=== PATIENT | female | born 1990 | race Caucasian/White ===

== ENCOUNTER 2024-04-26 19:04 | Observation (INO) ==
[2024-04-26] MEDS: LIDOCAINE/EPINEPH/TETRACAINE 1 EA SYR EXT STA (19:48)
[2024-04-26 21:16] LABS: Albumin Globulin Ratio 1.3 (0.9-2); Albumin Level 4.2 gm/dl (3.4-5.0); BUN Creatinine Ratio 15.1 (10-20); Bilirubin,Total 0.7 mg/dl (0.2-1.0); Creatinine Clr Calc Pharmacy 152.2 ml/min; Globulin 3.3 gm/dl (2.5-4.0); Total Protein 7.5 gm/dl (6.0-8.3)
--- NOTE | 2024-04-26 21:17 | CT Scan Report ---
Exam(s): CT HEAD Without Contrast EXAM: CT Head Without Intravenous Contrast CLINICAL HISTORY: Reason for exam: head injury. TECHNIQUE: Axial computed tomography images of the head/brain without intravenous contrast. CTDI is 35.65 mGy and DLP is 624.41 mGy-cm. Automated exposure control was utilized for the study. A dose lowering technique was utilized adhering to the principles of ALARA. COMPARISON: No relevant prior studies available. FINDINGS: Brain: No hemorrhage, extra-axial fluid collection, mass effect, or edema. Ventricles: Unremarkable. Bones/joints: Unremarkable. No fracture. Soft tissues: Unremarkable. Sinuses: No acute sinusitis. Mastoid air cells: Unremarkable as visualized. IMPRESSION: 1. No acute intracranial abnormality. Electronically signed by: Dawood Fitzgerald MD 04/26/24 21:16 PM
--- NOTE | 2024-04-26 21:19 | CT Scan Report ---
Exam(s): CT C SPINE EXAM: CT Cervical Spine Without Intravenous Contrast CLINICAL HISTORY: Reason for exam: head injury, fall. TECHNIQUE: Axial computed tomography images of the cervical spine without intravenous contrast. CTDI is 26.96 mGy and DLP is 711.47 mGy-cm. Automated exposure control was utilized for the study. A dose lowering technique was utilized adhering to the principles of ALARA. COMPARISON: No relevant prior studies available. FINDINGS: Vertebrae: No acute fracture or malalignment. Soft tissues: Unremarkable. IMPRESSION: No acute fracture or malalignment. Electronically signed by: Dawood Fitzgerald MD 04/26/24 21:18 PM
[2024-04-26 21:26] LABS: Potassium 3.8 mmol/L (3.5-5.1)
[2024-04-26 21:39] LABS: Basophils # (auto) 0.05 K/uL (0.00-0.20); Basophils % (auto) 0.5 %; Eosinophils # (auto) 0.21 K/uL (0.00-0.50); Eosinophils % (auto) 2.1 %; Hematocrit (blood only) 46.1 % (37.0-47.0); Hemoglobin 15.3 g/dl (12.0-16.0); Immature Granulocytes # (auto) 0.04 K/uL (0.01-0.20); Immature Granulocytes % (auto) 0.4 %; Lymphocytes # (auto) 2.05 K/uL (1.20-3.40); Lymphocytes % (auto) 20.7 %; Mean Corpuscular Hemoglobin 27.3 pg (25.0-34.0); Mean Corpuscular Hgb Conc 33.2 g/dL (32.0-36.0); Mean Corpuscular Volume 82.2 fL (80.0-100.0); Mean Platelet Volume 11.5 fL (9.4-12.4); Monocytes # (auto) 0.46 K/uL (0.11-0.59); Monocytes % (auto) 4.6 %; Neutrophils # (auto) 7.11 K/uL (1.40-6.50); Neutrophils % (auto) 71.7 %; Platelet Count 231 K/uL (130-400); RDW Coefficient of Variation 12.9 % (11.5-14.5); RDW Standard Deviation 38.7 fL (36.4-46.3); Red Blood Count 5.61 M/uL (4.20-5.40); White Blood Count 9.92 K/ul (4.8-10.8)
--- NOTE | 2024-04-26 21:39 | History & Physical Report ---
Date of Service April 26, 2024 Assessment & Plan (1) Contaminated complex laceration of nose: (2) Laceration of lip with other complication: (3) Nasal bones, closed fracture: History of Present Illness Chief Complaint: nasal laceration Primary Care Provider: CARO Hamm Chief Complaint: Patient is a 33-year-old female who presents to the emergency department with complaints of facial pain and lacerations after a ground-level fall. Patient states that she had a chair slipped out from underneath her and she fell into a cabinet face first. Patient states that she hit her nose and upper lip off the cabinet and now has lacerations to the area. Patient still has active bleeding when she presented to the emergency department. Patient denies any loss of consciousness and denies being on any blood thinners. Fall in basement laceration (complex ) to right lateral area region, base of right nostril and upper lip. 4 cm Flap laceration with a small flap with poor blood flow due to thinness. Risk of devitalization of this this flap discussed with Nneka. Given the flap type laceration this is an emergency case if there is any hopes of maintain viability of the facia flap laceration. In addition to the facial laceration she has a depressed nasal bone fracture with separation at the naso-frontal suture. I will plan close reduction of the nasal bones with William splint Plan take to OR as she is NPO x 24 hours Plan complex repair of nasal/facial wound+closed nasal reduction/Motley splint I discussed the case with the ER PA we will plan OR tonight. I reviewed the procedure and consent signed I will follow in my office for outpatient care CT scan Exam(s): CT FACIAL Without Contrast EXAM: CT Maxillofacial Without Intravenous Contrast CLINICAL HISTORY: Reason for exam: head injury, facial injury. FINDINGS: Bones/joints: Comminuted displaced nasal bone fracture with soft tissue laceration involving the right nostril. Soft tissues: See above. Orbits: Intraorbital contents are unremarkable. Submandibular/parotid glands: Prominence of the parotid glands bilaterally which is a nonspecific finding. Sinuses: Unremarkable. No air-fluid levels. IMPRESSION: Comminuted displaced nasal bone fracture with soft tissue laceration involving the right nostril Physical Exam Constitutional WD/WN, vitals as above Eyes PERRL, conjunctivae normal, anicteric sclerae ENMT external ear and nose normal, oropharynx normal Ears: no TM abnormality and able to visualize TM Throat: uvula midline NOSE: there is a complex nasal/facial laceration right side, exposed cartilage, Neck normal visual inspection and trachea midline Respiratory normal respiratory effort, lungs clear to auscultation Cardiovascular RRR, no murmur, no edema Musculoskeletal Extremities: full ROM of extremities Gait: normal gait Skin no visible rashes or lesions Psychiatric A+Ox3, euthymic affect Lymphatic no preauricular lymphadenopathy and no cervical lymphadenopathy Allergies Allergy/AdvReac Type Severity Reaction Status Date / Time ibuprofen [From Motrin] Allergy Hives Verified 04/26/24 21:47 metformin [From Glumetza] AdvReac Severe Gastrointestinal Verified 04/26/24 22:27 Upset Home Medications Medication Instructions Recorded Confirmed Type acetaminophen 325 mg capsule 325 mg PO QID PRN 05/24/23 04/23/24 History (Tylenol) cranberry 500 mg capsule 500 mg PO BID 05/24/23 04/23/24 History ibuprofen 600 mg tablet 600 mg PO Q8H PRN 05/24/23 04/23/24 History multivitamin [Daily Multi-Vitamin] PO 05/24/23 04/23/24 History pantoprazole 20 mg tablet,delayed 20 mg PO DAILY 05/24/23 04/23/24 History release psyllium husk 0.4 gram capsule 0.4 g PO DAILY 05/24/23 04/23/24 History (Metamucil) simethicone 125 mg capsule (Gas-X 125 mg PO DAILY PRN 05/24/23 04/23/24 History Extra Strength) vitamin B complex (B 1 tab PO DAILY 05/24/23 04/23/24 History Complex-Vitamin B12 tablet) levothyroxine 112 mcg tablet 112 mcg PO DAILY #90 tabs 03/07/24 04/23/24 Rx azelastine 137 mcg (0.1 %) nasal 1 spray intranasal BID #30 mL 04/23/24 04/23/24 Rx spray Past Med/Surg History Problem List Nasal bones, closed fracture Contaminated complex laceration of nose Allergic rhinitis Sinus congestion Amenorrhea Medical History Obesity Encounter for pre-operative examination Laceration of lip with other complication Pre-diabetes Hypothyroidism Surgical History (Updated 04/27/24 @ 12:03 by Becca Tijerina RN) History of nasal surgery (04/26/24) Repair of Complex Nasal/Facial Lacerations, Closed Reduction of Nasal Bone Fracture(Not Applicable) - Stephen Mcclain, DMD History of thrombectomy Laparoscopic thrombectomy Hx of wisdom tooth extraction Family History Grandmother (Paternal) Breast cancer Father Diabetes Hypertension Mother Thyroid condition Denies family history of Ovarian cancer Prostate cancer Myocardial infarction Colorectal cancer Social History Smoking Status: Never smoker Second Hand Exposure: No; Do You Dip or Chew Tobacco: No; Tobacco Cessation Education Requested by Patient: No Hx Alcohol Use: Yes Alcohol type: wine and hard liquor Alcohol Intake Frequency: Monthly or Less Hx Substance Use: No Preferred Language: Citizen Of [place] Communication Ability: Effective Visual Impairment: No Limitations Hearing Ability: Normal Clinical Data Programmer Required: No Beliefs That Will Affect Care: None marital status: Single Current Living Situation: Alone current occupational status: employed 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 How many Children do You have: 0 Other Information That Helps Us Care for You: No Feels Safe at Home: Yes Safety Concerns: Feels Safe At This Time Childhood Exposure to Second-Hand Smoke: No Diet: regular caffeine: Yes Dental Care, Regularly: No Physical Activity Frequency: Does not Exercise Seatbelt Use: always Sunscreen Use: Yes Assistive Devices: CPAP and Glasses Results & Data Results & Data Vital Signs (Past 12 Hours) Vital Signs Temp Pulse Resp BP Pulse Ox O2 Del Method 04/26/24 21:18 89 18 158/80 H 96 Room Air 04/26/24 19:13 36.5 C 81 18 161/88 H 100 Room Air PG Care Time/CCT Total # of Minutes Spent Total Time Spent with Patient: Total time spent is greater than 50% in coordination of care (as documented) at patient's floor/unit and/or counseling patient: Coding Level of Care Code 63423 INT INP/OBS CARE 1/40MIN Diagnoses Contaminated complex laceration of nose S01.21XA Laceration of lip with other complication, initial encounter S01.511A Encounter type: initial encounter Closed fracture of nasal bone, initial encounter S02.2XXA Encounter type: initial encounter CPT Codes COMPLEX REPAIR EYELID/NOSE/EAR/LIP 2.6-7.5 CM - 87118 ([id number]) SIMPLE REPAIR FACE/EAR/EYELID/NOSE/LIP/MM 2.5CM/LESS - 98152 ([id number]) Treatment of Nose Fracture - 59246 ([id number]) (2) Laceration of lip with other complication Encounter type: initial encounter Qualified Code(s): S01.511A - Laceration without foreign body of lip, initial encounter (3) Nasal bones, closed fracture Encounter type: initial encounter Qualified Code(s): S02.2XXA - Fracture of nasal bones, initial encounter for closed fracture
[2024-04-26] MEDS ORDERED: ONDANSETRON INJ 2 MG/ML 2 ML VIAL ONE (21:42)
[2024-04-26] MEDS ORDERED: LIDOCAINE 2% 2 ML VIAL/AMP(20MG/ML) INFIL ONE (21:42)
[2024-04-26] MEDS ORDERED: DEXAMETHASONE SOD INJ 4 MG/ML VIAL ONE (21:42)
[2024-04-26] MEDS ORDERED: PROPOFOL IV EMULSION 10 MG/ML 20 ML VIAL IV ONE (21:42)
[2024-04-26] MEDS ORDERED: ROCURONIUM BROMIDE 10 MG/ML 5 ML VIAL IV ONE (21:42)
[2024-04-26] MEDS ORDERED: MIDAZOLAM HCL 1 MG/ML 2ML VIAL ONE ×2 (21:43→23:45)
[2024-04-26] MEDS ORDERED: fentaNYL citrate PF 100 MCG/2 ML VIAL ONE ×3 (21:43→23:18)
--- NOTE | 2024-04-26 21:46 | Anesthesiology Consultation ---
Date of Service April 26, 2024 Assessment & Plan (1) Encounter for pre-operative examination: Chart Review Chart Review: Acceptable Risk for Surgery and Patient NOT seen in Pre Admission Testing Consults Requested none History Surgery Operation Date: 04/26/24 22:00 Proposed Procedures p Suturing Facial Lacerations - Stephen Mcclain DMD Height/Weight Height: 5 ft 5 in Weight: 134.4 kg Allergies Allergy/AdvReac Type Severity Reaction Status Date / Time metformin [From Glumetza] Allergy Severe Gastrointestinal Verified 04/23/24 09:06 Upset ibuprofen [From Motrin] Allergy Hives Verified 04/26/24 21:47 seasonal Allergy Hives Uncoded 04/26/24 21:47 Medications Home Medications Medication Instructions Recorded Confirmed Last Taken acetaminophen 325 mg capsule 325 mg PO QID PRN 05/24/23 04/23/24 Unknown (Tylenol) cranberry 500 mg capsule 500 mg PO BID 05/24/23 04/23/24 Unknown ibuprofen 600 mg tablet 600 mg PO Q8H PRN 05/24/23 04/23/24 Unknown multivitamin [Daily Multi-Vitamin] PO 05/24/23 04/23/24 Unknown pantoprazole 20 mg tablet,delayed 20 mg PO DAILY 05/24/23 04/23/24 Unknown release psyllium husk 0.4 gram capsule 0.4 g PO DAILY 05/24/23 04/23/24 Unknown (Metamucil) simethicone 125 mg capsule (Gas-X 125 mg PO DAILY PRN 05/24/23 04/23/24 Unknown Extra Strength) vitamin B complex (B 1 tab PO DAILY 05/24/23 04/23/24 Unknown Complex-Vitamin B12 tablet) levothyroxine 112 mcg tablet 112 mcg PO DAILY #90 tabs 03/07/24 04/23/24 Unknown azelastine 137 mcg (0.1 %) nasal 1 spray intranasal BID #30 mL 04/23/24 04/23/24 Unknown spray NPO Date Last Intake of Fluids: 04/26/24 Time Last Intake of Fluids: 00:00 Date Last Intake of Solids: 04/26/24 Time Last Intake of Solids: 00:00 Past Medical History Medical History (Updated 04/26/24 @ 21:56 by Hong Newman MD) Obesity Encounter for pre-operative examination Laceration of lip with other complication Pre-diabetes Hypothyroidism Exercise / Class Metabolic Activity II 4-5 Yardwork/Stairs/Walk up hill Past Family History Family History Grandmother (Paternal) Breast cancer Father Diabetes Hypertension Mother Thyroid condition Denies family history of Ovarian cancer Prostate cancer Myocardial infarction Colorectal cancer Past Surgical History Surgical History History of thrombectomy Laparoscopic thrombectomy Hx of wisdom tooth extraction Social History Smoking Status: Never smoker Do You Dip or Chew Tobacco: No Hx Alcohol Use: Yes Alcohol type: wine and hard liquor Hx Substance Use: No Physical Exam Vital Signs Last Vital Signs Temp 36.5 C 04/26/24 19:13 Pulse 89 04/26/24 21:18 Resp 18 04/26/24 21:18 BP 158/80 H 04/26/24 21:18 Pulse Ox 96 04/26/24 21:18 O2 Del Method Room Air 04/26/24 21:18 Testing Laboratory Results 04/26/24 20:42 04/26/24 20:42
[2024-04-26] MEDS ORDERED: PROMETHAZINE HCL 6.25 MG in SODIUM CHLORIDE 0.9% 50 ML IV PRN (21:57)
[2024-04-26] MEDS ORDERED: ONDANSETRON INJ 2 MG/ML 2 ML VIAL IV PRN (21:57)
[2024-04-26] MEDS ORDERED: ATROPINE SULFATE 0.1 MG/ML 10ML SYR IV PRN (21:57)
[2024-04-26] MEDS ORDERED: fentaNYL citrate PF 100 MCG/2 ML VIAL IV PRN (21:57)
[2024-04-26] MEDS ORDERED: HYDROmorphone INJ 1 MG/ML SYRINGE IV PRN (21:57)
[2024-04-26] MEDS ORDERED: ePHEDrine sulfate 50 MG/ML AMP IV PRN (21:57)
[2024-04-26] MEDS: AMPICILLIN/SULBACTAM SOD 3,000 MG/100 ML BAG IV STA (22:15)
[2024-04-26] MEDS ORDERED: ePHEDrine sulfate 50 MG/5 ML SYR ONE (22:27)
[2024-04-26] MEDS ORDERED: ACETAMINOPHEN 1000 MG/100 ML IV IV ONE (22:28)
--- NOTE | 2024-04-26 22:29 | Emergency Department Note ---
ED Provider Note History of Present Illness Chief Complaint: Fall Stated Complaint: Fall, Nose Pain, L Hand Pain Time Seen by Provider: 04/26/24 19:05 Source: patient Mode of arrival: EMS Limitations: no limitations Patient is a 33-year-old female who presents to the emergency department with complaints of facial pain and lacerations after a ground-level fall. Patient states that she had a chair slipped out from underneath her and she fell into a cabinet face first. Patient states that she hit her nose and upper lip off the cabinet and now has lacerations to the area. Patient still has active bleeding when she presented to the emergency department. Patient denies any loss of consciousness and denies being on any blood thinners. Home Medications Medication Instructions Recorded Confirmed Type acetaminophen 325 mg capsule 325 mg PO QID PRN 05/24/23 05/01/24 History (Tylenol) cranberry 500 mg capsule 500 mg PO BID 05/24/23 05/01/24 History ibuprofen 600 mg tablet 600 mg PO Q8H PRN 05/24/23 05/01/24 History multivitamin [Daily Multi-Vitamin] PO 05/24/23 05/01/24 History pantoprazole 20 mg tablet,delayed 20 mg PO DAILY 05/24/23 05/01/24 History release psyllium husk 0.4 gram capsule 0.4 g PO DAILY 05/24/23 05/01/24 History (Metamucil) simethicone 125 mg capsule (Gas-X 125 mg PO DAILY PRN 05/24/23 05/01/24 History Extra Strength) vitamin B complex (B 1 tab PO DAILY 05/24/23 05/01/24 History Complex-Vitamin B12 tablet) levothyroxine 112 mcg tablet 112 mcg PO DAILY #90 tabs 03/07/24 05/01/24 Rx azelastine 137 mcg (0.1 %) nasal 1 spray intranasal BID #30 mL 04/23/24 05/01/24 Rx spray amoxicillin 875 mg-potassium 1 tab PO Q12H nasal / facial 04/27/24 05/01/24 Rx clavulanate 125 mg tablet laceration #20 tabs hydrocodone 5 mg-acetaminophen 325 1 tab PO Q4H PRN pain #10 tabs 04/27/24 05/01/24 Rx mg tablet Allergies Allergy/AdvReac Type Severity Reaction Status Date / Time ibuprofen [From Motrin] Allergy Hives Verified 05/01/24 14:07 metformin [From Glumetza] AdvReac Severe Gastrointestinal Verified 05/01/24 14:07 Upset Past Med/Surg History Problem List (Updated 05/01/24 @ 20:57 by CARO Murphy) Nasal bones, closed fracture (Acute) Contaminated complex laceration of nose (Acute) Allergic rhinitis Sinus congestion Amenorrhea Medical History (Updated 05/01/24 @ 20:57 by CARO Murphy) Obesity Encounter for pre-operative examination Laceration of lip with other complication Pre-diabetes Hypothyroidism Surgical History (Updated 04/27/24 @ 12:03 by Becca Tijerina RN) History of nasal surgery (04/26/24) Repair of Complex Nasal/Facial Lacerations, Closed Reduction of Nasal Bone Fracture(Not Applicable) - Stephen Mcclain, DMD History of thrombectomy Laparoscopic thrombectomy Hx of wisdom tooth extraction Family History Grandmother (Paternal) Breast cancer Father Diabetes Hypertension Mother Thyroid condition Denies family history of Ovarian cancer Prostate cancer Myocardial infarction Colorectal cancer Social History Smoking Status: Never smoker Second Hand Exposure: No; Do You Dip or Chew Tobacco: No; Hx Alcohol Use: Yes Alcohol type: wine and hard liquor Alcohol Intake Frequency: Monthly or Less Hx Substance Use: No Preferred Language: Vietnamese Communication Ability: Effective Visual Impairment: No Limitations Hearing Ability: Normal Volunteer Firefighter Required: No Beliefs That Will Affect Care: None marital status: Single Current Living Situation: Alone current occupational status: employed 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 How many Children do You have: 0 Feels Safe at Home: Yes Childhood Exposure to Second-Hand Smoke: No Diet: regular caffeine: Yes Dental Care, Regularly: No Physical Activity Frequency: Does not Exercise Seatbelt Use: always Sunscreen Use: Yes Assistive Devices: CPAP and Glasses Physical Exam Vital Signs Vital Signs - 24 hr 04/26/24 19:13 04/26/24 21:18 Temperature 36.5 C Temperature Source Oral Pulse Rate 81 89 Respiratory Rate 18 18 Respiratory Effort / Characteristics Non-Labored Spontaneous Respiratory Depth Normal Blood Pressure 161/88 H 158/80 H Blood Pressure Mean 112 Pulse Oximetry 100 96 Oxygen Delivery Method Room Air Room Air Sepsis Recent Fever Within 48 Hours No Sepsis New/Unexplained Change in Mental Status No Sepsis Action Taken by Nursing No Action Required VITAL SIGNS - Vital signs and nursing notes were reviewed. GENERAL -33-year-old female appearing their stated age, who is in no acute distress. Communicates well with provider and answers questions appropriately. HEAD - Normocephalic, No depressed skull fractures palpable. Patient has significant, complicated lacerations to her years, upper lip, and the bridge of her nose. Patient still has moderate active bleeding upon presentation to the emergency department. Dried blood noted in bilateral nares. EYES - PERRL, Sclera anicteric. Conjunctiva pink and moist with no injection noted. EARS - No deformities of external structures noted on gross examination bilaterally. NECK - Neck with FROM. Supple to palpation. No lymphadenopathy noted. LUNGS - Chest wall symmetric without accessory muscle use, intercostals retractions, or central cyanosis. Normal vesicular breath sounds CTA B/L. No wheezes, rales, or rhonchi appreciated. CARDIAC - RRR with S1/S2. No murmur, rubs, or gallops appreciated. EXTREMITIES - No edema present. +5/5 strength noted in UE/LE bilaterally. NEUROLOGIC -Sensory intact to light touch throughout. PSYCH - A&Ox3 and cooperates fully with examiner. Pt is very pleasant and interacts well with examiner Course Administered Medications Discontinued Medications Acetaminophen (Acetaminophen 325 Mg Tab) 325 mg PO QID PRN PRN Reason: Pain 1-3 Stop: 05/27/24 00:22 Last Admin: 04/27/24 01:41 Dose: 325 mg Documented By: CASANDRA Hydrocodone Bitart/Acetaminophen (Hydrocodone/Acetamophen 5/325mg Tab) 1 - 2 tab PO Q4H PRN PRN Reason: Pain Stop: 05/11/24 00:05 Last Admin: 04/27/24 14:45 Dose: 1 tab Documented By: Admin: 04/27/24 07:51 Dose: 1 tab Documented By: LELAND Bacitracin (Bacitracin Oint 14 Gm Tube) Confirm Administered Dose 45 appln .ROUTE .STK-MED ONE Stop: 04/26/24 23:33 Last Admin: 04/26/24 23:54 Dose: 45 appln Documented By: GARDENIA Bupivacaine HCl (Bupivacaine/Epinephrine 0.5% 1:200,000 1.8 Ml Carp) Confirm Administered Dose 10.8 ml .ROUTE .STK-MED ONE Stop: 04/26/24 21:10 Last Admin: 04/26/24 23:26 Dose: 5.8 ml Documented By: GARDENIA Ampicillin Sodium/Sulbactam Sodium (Unasyn) 3,000 mg in 100 mls @ 200 mls/hr IV NOW STA Stop: 04/26/24 21:03 Last Infusion: 04/27/24 00:59 Dose: Infused Documented By: Admin: 04/26/24 22:15 Dose: 200 mls/hr Documented By: MARYANN Cefazolin Sodium (Ancef 2000mg) 2,000 mg in 15 mls @ 3.75 mls/min IV Q8H SHARLENE Stop: 04/27/24 18:03 Last Admin: 04/27/24 10:01 Dose: 3.75 mls/min Documented By: Admin: 04/27/24 01:27 Dose: 3.75 mls/min Documented By: CASANDRA Levothyroxine Sodium (Levothyroxine Sodium 112 Mcg Tablet) 112 mcg PO DAILYBB SHARLENE Stop: 05/27/24 06:29 Last Admin: 04/27/24 05:19 Dose: 112 mcg Documented By: CASANDRA Lidocaine (Lidocaine/Epineph/Tetracaine 1 Ea Syr) 1 each EXT NOW STA Stop: 04/26/24 19:42 Last Admin: 04/26/24 19:48 Dose: 1 each Documented By: KALPESH Oxymetazoline HCl (Oxymetazoline 0.05% 30 Ml Btl) Confirm Administered Dose 150 sprays .ROUTE .STK-MED ONE Stop: 04/26/24 22:27 Last Admin: 04/26/24 22:30 Dose: 150 sprays Documented By: GARDENIA Pantoprazole Sodium (Pantoprazole 40 Mg Tab) 40 mg PO Q24H SHARLENE Stop: 05/27/24 07:29 Last Admin: 04/27/24 07:52 Dose: 40 mg Documented By: LELAND Triamcinolone Acetonide (Triamcinolone Acet 0.1% Oint 15 Gm Tube) Confirm Administered Dose 45 appln .ROUTE .STK-MED ONE Stop: 04/26/24 21:11 Last Admin: 04/26/24 23:53 Dose: Not Given Documented By: KWASI Medical Decision Making Differential Diagnosis Fracture, dislocation, soft tissue injury, contusion, laceration, skin avulsion, cartilage injury, among others Medical Records Attestation: I reviewed the patient's medical records. Home Medications was personally reviewed by me Laboratory Data Attestation: I reviewed the patient's lab results. 04/26/24 20:42 04/26/24 20:42 Lab Results 04/26/24 Range/Units 20:42 WBC 9.92 (4.8-10.8) K/ul RBC 5.61 H (4.20-5.40) M/uL Hgb 15.3 (12.0-16.0) g/dl Hct 46.1 (37.0-47.0) % MCV 82.2 (80.0-100.0) fL MCH 27.3 (25.0-34.0) pg MCHC 33.2 (32.0-36.0) g/dL RDW Std Deviation 38.7 (36.4-46.3) fL RDW Coeff of [place] 12.9 (11.5-14.5) % Plt Count 231 (130-400) K/uL MPV 11.5 (9.4-12.4) fL Immature Gran % (Auto) 0.4 % Neut % (Auto) 71.7 % Lymph % (Auto) 20.7 % Finney % (Auto) 4.6 % Eos % (Auto) 2.1 % Baso % (Auto) 0.5 % Neut # (Auto) 7.11 H (1.40-6.50) K/uL Lymph # (Auto) 2.05 (1.20-3.40) K/uL Finney # (Auto) 0.46 (0.11-0.59) K/uL Eos # (Auto) 0.21 (0.00-0.50) K/uL Baso # (Auto) 0.05 (0.00-0.20) K/uL Immature Gran # (Auto) 0.04 (0.01-0.20) K/uL Sodium 139 (136-145) mmol/L Potassium 3.8 (3.5-5.1) mmol/L Chloride 105 (98-107) mmol/L Carbon Dioxide 24 (21-32) mmol/L Anion Gap 10 (3-11) BUN 11 (6-23) mg/dl Creatinine 0.73 (0.6-1.2) mg/dl Est Cr Clr Drug Dosing 152.2 ml/min eGFR 111.29 BUN/Creatinine Ratio 15.1 (10-20) Glucose 97 (70-99(Fasting)) mg/dl Calcium 9.0 (8.6-10.3) mg/dl Total Bilirubin 0.7 (0.2-1.0) mg/dl AST 25 (13-39) U/L ALT 32 (7-52) U/L Alkaline Phosphatase 75 (34-104) U/L Total Protein 7.5 (6.0-8.3) gm/dl Albumin 4.2 (3.4-5.0) gm/dl Globulin 3.3 (2.5-4.0) gm/dl Albumin/Globulin Ratio 1.3 (0.9-2) Imaging Data Radiologist's Impression: Cervical Spine CT 04/26/24 19:41 Exam(s): CT C SPINE EXAM: CT Cervical Spine Without Intravenous Contrast CLINICAL HISTORY: Reason for exam: head injury, fall. TECHNIQUE: Axial computed tomography images of the cervical spine without intravenous contrast. CTDI is 26.96 mGy and DLP is 711.47 mGy-cm. Automated exposure control was utilized for the study. A dose lowering technique was utilized adhering to the principles of ALARA. COMPARISON: No relevant prior studies available. FINDINGS: Vertebrae: No acute fracture or malalignment. Soft tissues: Unremarkable. IMPRESSION: No acute fracture or malalignment. Electronically signed by: Dawood Fitzgerald MD 04/26/24 21:[address] 04/26/24 19:41 Exam(s): CT HEAD Without Contrast EXAM: CT Head Without Intravenous Contrast CLINICAL HISTORY: Reason for exam: head injury. TECHNIQUE: Axial computed tomography images of the head/brain without intravenous contrast. CTDI is 35.65 mGy and DLP is 624.41 mGy-cm. Automated exposure control was utilized for the study. A dose lowering technique was utilized adhering to the principles of ALARA. COMPARISON: No relevant prior studies available. FINDINGS: Brain: No hemorrhage, extra-axial fluid collection, mass effect, or edema. Ventricles: Unremarkable. Bones/joints: Unremarkable. No fracture. Soft tissues: Unremarkable. Sinuses: No acute sinusitis. Mastoid air cells: Unremarkable as visualized. IMPRESSION: 1. No acute intracranial abnormality. Electronically signed by: Dawood Fitzgerald MD 04/26/24 21:16 PM [facility] Narrative Patient is a 33-year-old female who presents to the emergency department with complaints of facial pain and lacerations after a ground-level fall. Patient states that she had a chair slipped out from underneath her and she fell into a cabinet face first. Patient states that she hit her nose and upper lip off the cabinet and now has lacerations to the area. Patient still has active bleeding when she presented to the emergency department. Patient denies any loss of consciousness and denies being on any blood thinners. Patient presented with a large absorbant pad and towel held against her face catching the active bleeding. Patient pulled the towel away from her face which showed several significant lacerations on her upper lip and the bridge of her nose. The wound appeared to involved several layers of tissue and cartiladge. Patient was ordered a CT of the head, cervical spine and facial bones. The patient's wounds were also covered with LET gel to help minimize pain while she went for CT scans and in preparation for possible repair. I reached out to Dr. Mcclain who was used car salesperson for oral maxillary facial surgery and gave him a report on the patient, her complaints,current status and sent him a photo through [employer] of the patient's injuries. Dr. Mcclain informed me that the patient would require extensive repair and would need to be completed in the OR. I discussed this with the patient and the patient verbalized understanding. Patient noted that she had not eaten yet today and Dr. Mcclain had an OR team on their way. I discussed with the patient that we would order an xray of her left hand as well as a dose of Unasyn for preop. Dr Mcclain was in the department and assessed the patient at bedside. Due to how quickly Dr. Mcclain came to the hospital and was able to take the patient to the OR, there were not radiology reads of her CTs or xrays at this time. Dr. Mcclain said that was fine and the wounds needed repair either way. Patient was taken to the OR with Dr. Mcclain. Please refer to his documentation for further evaluation and management of the patient. Impression Nasal bones, closed fracture, Contaminated complex laceration of nose Discharge Plan Visit Data Chief Complaint: Fall Stated Complaint: Fall, Nose Pain, L Hand Pain ED Provider: Elvin Mendez ED Midlevel Provider: Kirsten oCnnor Discharge Problem: Nasal bones, closed fracture, Contaminated complex laceration of nose Patient Disposition: Admitted As Inpatient Condition: Good Discharge Instructions Interventions: ED Discharge Assessment Last Done: 04/26/24 21:18
[2024-04-26] MEDS: OXYMETAZOLINE 0.05% 30 ML BTL ONE (22:30)
[2024-04-26] MEDS ORDERED: DROPERIDOL 5 MG/2 ML VIAL ONE (23:20)
[2024-04-26] MEDS: BUPIVACAINE/EPINEPHRINE 0.5% 1:200,000 1.8 ML CARP ONE (23:26)
--- NOTE | 2024-04-26 23:52 | Post Operative Brief Note ---
PG Immediate Post Op with CF Date of Surgery April 26, 2024 Pre & Post Diagnosis Operation Date: 04/26/24 22:00 Pre-Op Diagnosis: Complex laceration of nose, Laceration of lip, Nasal bones, closed fracture Post-Op Diagnosis: Complex laceration of nose, Laceration of lip, Nasal bones, closed fracture I identified the patient and participated in the time-out.: Yes Procedure Operation Date: 04/26/24 22:00 Actual Procedures p Repair of Complex Nasal/Facial Lacerations, Closed Reduction of Nasal Bone Fracture(Not Applicable) - Stephen Mcclain DMD Surgeon Stephen Mcclain DMD Solution Sales Senior Executive none Estimated Blood Loss 5 Findings Consistent with Post-Op Diagnosis complex nasal/facial laceration nasal bone fractures Anesthesia Type General Disposition Accompanied Patient To Recovery: Yes
[2024-04-26] MEDS: TRIAMCINOLONE ACET 0.1% OINT 15 GM TUBE ONE (23:53)
[2024-04-26] MEDS: BACITRACIN OINT 14 GM TUBE ONE (23:54)
--- NOTE | 2024-04-26 23:55 | CT Scan Report ---
Exam(s): CT FACIAL Without Contrast EXAM: CT Maxillofacial Without Intravenous Contrast CLINICAL HISTORY: Reason for exam: head injury, facial injury. TECHNIQUE: Axial computed tomography images of the face without intravenous contrast. CTDI is 35.65 mGy and DLP is 624.41 mGy-cm. Automated exposure control was utilized for the study. A dose lowering technique was utilized adhering to the principles of ALARA. COMPARISON: No relevant prior studies available. FINDINGS: Bones/joints: Comminuted displaced nasal bone fracture with soft tissue laceration involving the right nostril. Soft tissues: See above. Orbits: Intraorbital contents are unremarkable. Submandibular/parotid glands: Prominence of the parotid glands bilaterally which is a nonspecific finding. Sinuses: Unremarkable. No air-fluid levels. IMPRESSION: Comminuted displaced nasal bone fracture with soft tissue laceration involving the right nostril Electronically signed by: Donny Smith MD 04/26/24 23:54 PM
--- NOTE | 2024-04-26 23:58 | XRay Report ---
Exam(s): XR LEFT HAND, 3 views EXAM: XR Left Hand Complete, 3 or More Views CLINICAL HISTORY: Reason for exam: fall, injury. TECHNIQUE: Frontal, lateral and oblique views of the left hand. COMPARISON: No relevant prior studies available. FINDINGS: Bones/joints: Unremarkable. No acute fracture. No dislocation. Soft tissues: Unremarkable. No radiopaque foreign body. IMPRESSION: Normal left hand x-rays. Electronically signed by: Donny Smith MD 04/26/24 23:56 PM
--- NOTE | 2024-04-27 00:09 | Anesthesiology Progress Note ---
Date of Service April 27, 2024 Anesthesia Post Procedure Vital Signs Vital Signs: Temp Pulse Pulse Resp BP BP Pulse Ox 04/27/24 00:03 36.6 C 82 18 138/61 04/26/24 23:49 36.5 C 20 112/57 L 96 04/26/24 21:18 89 18 158/80 H 96 04/26/24 19:13 36.5 C 81 18 161/88 H 100 O2 Del Method O2 Flow Rate 04/27/24 00:03 04/26/24 23:49 Oxymask 9 04/26/24 21:18 Room Air 04/26/24 19:13 Room Air Transfer of Care Handoff Completed per policy Notes Mental Status: alert / awake / arousable and participated in evaluation Patient Amnestic to Procedure: Yes Nausea / Vomiting: adequately controlled Pain: adequately controlled Airway Patency, RR, SpO2: stable & adequate BP & HR: stable & adequate Hydration State: stable & adequate Anesthetic Complications: no major complications apparent and Pt Satisfied with anesthetic care
[2024-04-27] MEDS: ceFAZolin 2000MG 2,000 MG/15 ML SYR IV SCH (01:27)
[2024-04-27] MEDS: ACETAMINOPHEN 325 MG TAB PO PRN (01:41)
[2024-04-27] MEDS: LEVOTHYROXINE SODIUM 112 MCG TABLET PO SCH (05:19)
[2024-04-27] MEDS ORDERED: Nursing to Pharmacy Communication SCH (05:30)
[2024-04-27 07:22] VITALS: RESP 16; TEMP 97.9
[2024-04-27] MEDS: HYDROCODONE/ACETAMOPHEN 5/325MG TAB PO PRN (07:51)
[2024-04-27] MEDS: PANTOprazole 40 MG TAB PO SCH (07:52)
[2024-04-27] MEDS ORDERED: PANTOprazole 40 MG TAB PO SCH (09:00)
[2024-04-27 14:22] VITALS: BP 106/77; PULSE 65; O2SAT 95
--- NOTE | 2024-04-27 15:07 | Oral/Maxillofacial Progress Nt ---
Date of Service April 27, 2024 Assessment & Plan Admission and Anticipated Discharge Date Admission Date: April 27, 2024 Subjective Post OP note for facial lacerations at 18 hours The repaired laceration looks good. [place] splint in place--plan to remove Tuesday in my office. The tissue is soft and the scar has excellent color match. The thin flap is still dusky but still vital Swelling as expected, nasal packing removed. Over all the result is excellent and the patient is very please given the extent of the injury Reviewed home care, diet, Oral care, antibiotics, follow up with Dr Mcclain D/C today RTC May 01 at 2:30 for [place] Split removal and wound care . Results & Data Vital Signs (Past 12 Hours) Vital Signs Temp Pulse Resp BP Pulse Ox O2 Del Method 04/27/24 14:18 36.6 C 65 16 106/77 95 Room Air 04/27/24 07:21 36.6 C 75 16 118/78 96 Room Air 04/27/24 03:30 36.5 C 74 18 117/78 94 Room Air PG Care Time/CCT Total # of Minutes Spent Total Time Spent with Patient: Total time spent is greater than 50% in coordination of care (as documented) at patient's floor/unit and/or counseling patient: Coding Level of Care Code None
--- NOTE | 2024-04-27 15:39 | Discharge Summary ---
Date of Service April 27, 2024 Post OP note for facial lacerations at 18 hours The repaired laceration looks good. [place] splint in place--plan to remove Tuesday in my office. The tissue is soft and the scar has excellent color match. The thin flap is still dusky but still vital Swelling as expected, nasal packing removed. Over all the result is excellent and the patient is very please given the extent of the injury Reviewed home care, diet, Oral care, antibiotics, follow up with Dr Mcclain D/Keagan today RTC May 01 at 2:30 for [place] Split removal and wound care Admission HPI Per Admitting Provider Chief Complaint: Patient is a 33-year-old female who presents to the emergency department with complaints of facial pain and lacerations after a ground-level fall. Patient states that she had a chair slipped out from underneath her and she fell into a cabinet face first. Patient states that she hit her nose and upper lip off the cabinet and now has lacerations to the area. Patient still has active bleeding when she presented to the emergency department. Patient denies any loss of consciousness and denies being on any blood thinners. Fall in basement laceration (complex ) to right lateral area region, base of right nostril and upper lip. 4 cm Flap laceration with a small flap with poor blood flow due to thinness. Risk of devitalization of this this flap discussed with Nneka. Given the flap type laceration this is an emergency case if there is any hopes of maintain viability of the facia flap laceration. In addition to the facial laceration she has a depressed nasal bone fracture with separation at the naso-frontal suture. I will plan close reduction of the nasal bones with [place] splint Plan take to OR as she is NPO x 24 hours Plan complex repair of nasal/facial wound+closed nasal reduction/[place] splint I discussed the case with the ER PA we will plan OR tonight. I reviewed the procedure and consent signed I will follow in my office for outpatient care CT scan Exam(s): CT FACIAL Without Contrast EXAM: CT Maxillofacial Without Intravenous Contrast CLINICAL HISTORY: Reason for exam: head injury, facial injury. FINDINGS: Bones/joints: Comminuted displaced nasal bone fracture with soft tissue laceration involving the right nostril. Soft tissues: See above. Orbits: Intraorbital contents are unremarkable. Submandibular/parotid glands: Prominence of the parotid glands bilaterally which is a nonspecific finding. Sinuses: Unremarkable. No air-fluid levels. IMPRESSION: Comminuted displaced nasal bone fracture with soft tissue laceration involving the right nostril Physical Exam Constitutional WD/WN, vitals as above Eyes PERRL, conjunctivae normal, anicteric sclerae ENMT external ear and nose normal, oropharynx normal Ears: no TM abnormality and able to visualize TM Throat: uvula midline NOSE: there is a complex nasal/facial laceration right side, exposed cartilage, Neck normal visual inspection and trachea midline Respiratory normal respiratory effort, lungs clear to auscultation Cardiovascular RRR, no murmur, no edema Musculoskeletal Extremities: full ROM of extremities Gait: normal gait Skin no visible rashes or lesions Psychiatric A+Ox3, euthymic affect Lymphatic no preauricular lymphadenopathy and no cervical lymphadenopathy Discharge Data Procedures Performed Operation Date: 04/26/24 22:00 Actual Procedures p Repair of Complex Nasal/Facial Lacerations,(Not Applicable) - Stephen Mcclain DMD s Closed Reduction of Nasal Bone Fracture(Not Applicable) - Stephen Mcclain DMD Coding Level of Care Code 52442 IN/OBS DISCH 30 MIN/LESS
--- NOTE | 2024-05-03 10:13 | Operative Report ---
PG Post Operative Report Pre & Post Diagnosis Operation Date: 04/26/24 22:00 Pre-Op Diagnosis: Complex laceration of nose, Laceration of lip, Nasal bones, closed fracture Post-Op Diagnosis: Complex laceration of nose, Laceration of lip, Nasal bones, closed fracture I identified the patient and participated in the time-out.: Yes Procedure Operation Date: 04/26/24 22:00 Actual Procedures p Repair of Complex Nasal/Facial Lacerations,(Not Applicable) - Stephen Mcclain DMD s Closed Reduction of Nasal Bone Fracture(Not Applicable) - Stephen Mcclain DMD Surgeon Stephen Mcclain DMD Software Project Engineer none Estimated Blood Loss 5 Findings Consistent with Post-Op Diagnosis Specimens none Drains none Anesthesia Type General Complications none Disposition Accompanied Patient To Recovery: Yes Indications Fall in basement laceration (complex ) to right lateral area region, base of right nostril and upper lip. 4 cm Flap laceration with a small flap with poor blood flow due to thinness. Risk of devitalization of this this flap discussed with Nneka. Given the flap type laceration this is an emergency case if there is any hopes of maintain viability of the facia flap laceration. In addition to the facial laceration she has a depressed nasal bone fracture with separation at the naso-frontal suture. I will plan close reduction of the nasal bones with William splint Plan take to OR as she is NPO x 24 hours Plan complex repair of nasal/facial wound+closed nasal reduction/[place] splint Description of Procedure Operative report CPT 49281 closed reduction of nasal fracture with stabilization splint CPT Repair of a 4 cm complex facial laceration involving nose, upper lip and oral mucosa from fall [id number] CPT 70885 closed reduction of nasal fracture with stabilization splint Diagnosis: Displaced fracture of nasal bones (depression on right-elevated on the left) due to fall Procedure: Closed reduction of nasal bone/septal fracture Coding: [id number] [id number] closed reduction of nasal fracture with stabilization splint Operation: Once cleared for surgery general anesthesia was achieved, the eyes were protected by the anesthesia department criteria. A time out was take for patient ID, antibiotics, equipment and position verification once all agreed the procedure began. A throat pack was placed after the oral cavity was irrigated with saline. Local anesthesia was given into the area using Marcaine with a vasoconstrictor ( approx 6 ml ). Facial laceration repair: The repair of a 4 cm complex oral/nasal/facial laceration involving the nose, upper lip and oral mucosa from fall I reprepped the laceration and irrigated with an NS then turned my attention to the complex laceration. The laceration was approximately 4 cm long. It was very irregular and deep, the muscle was exposed as was the bone of the pre maxilla and nose. I used an electrocautery instrument and cauterized any bleeders. The wound was irrigated and scrubbed. I then inspected the maxillary bone and could find no displacement and excellent plate stability. The nasal bones on the right side were displaced and fractured, left side was intact. I will address the nasal bone once the lacerations were closed. The closure of the laceration was now started using 6-0 Vicryl suture to line up the deep muscles and periosteum of the oral mucosa, skin, right nostril and septum/columella. Once the deep sutures were placed I used both 6-0 Nylon and 5-0 Vicryl to line un the mucosa and skin. There was a very thin flap of tissue that shaved off the lateral rim of the right nostril. I was able to carefully reattach the tissue to cover the SubQ tissue and exposed cartilage. A very nice cosmetic closure of this irregular complex laceration was achieved. There were a few simple lacerations on the bridge of the nose which were repaired with a 6-0 Nylon. There was a deep laceration on the right lateral that exposed the nasal bone and cartilage I will close this laceration once I reduce the fracture. I now turned my attention to the nasal reduction and [place] splint placement. I turned my attention to the nasal bones the right nasal bone was impacted medially with a clinical depression to the side of the nose while the left not fractured. Using epinephrine solution I wetted 2 gauze packing and inserted into the nose to help limit bleeding during the manipulation. Now using a flat elevator I was able to apply lateral pressure while manipulating the bone intranasally to achieve an anatomic form to the right side of the nasal fracture. I now turned my attention to the left side of the nose . Using the nasal elevator intranasally I was able to apply intra nasal pressure to the left side but no movement was noted. Once the right side was reduced the nose was now symmetric. The septum and columella looked to be well aligned. I was pleased with the anatomic reduction and stability of the fractures. I inspected intranasally, all the mucosal tissue were all WNL and I irrigated any clots and suctioned the throat. Bleeding was minimal. I used the deep laceration on the right lateral that exposed the nasal bone and cartilage to inspect the nasal reduction directly. Being satisfied with the reduction I irrigated the wound, placed a few deep sutures to close the deep tissues over the nasal bones and then obtained skin closure with a 6-0 Nylon. A very nice cosmetic closure of this irregular complex laceration was achieved William splint placement: Finally a nasal splint ([place] splint) was modified and placed/ taped into place as per protocol. Clinically the nose and septum were lined up very well. I inspected the nose to insure all bleeding was controlled and William splint in place. Completion: I removed the throat pack and suctioned the throat. All instrument and sponge count was correct. The patient was allowed to awake from the anest hesia. Once full awake the anesthesia tube was removed and the patient was taken to the recovery room with all vital sign stable. The patient tolerated the surgery very well. The patient tolerated the surgery very well. I will follow the patient in my office, Rx and instructions will be given upon discharge. Post op plan: I will follow in my office, Rx and instructions will be given upon discharge. RTC for [place] splint removal on May 01 I attest to the content of the Intraoperative Record and any orders documented therein. Any exceptions are noted below.
== END 2024-04-27 16:54 | disposition home or self-care (01) ==
LOC: ED 19:04 → 3N 21:15 → OR 21:15